=== PATIENT | female | born 1990 | race Two or more races ===

== ENCOUNTER 2023-12-18 12:25 | Emergency (ER) | payer MEDICAID, OTHER ==
[~2023-12-18] VITALS: Ht 165.1 cm; Wt 81.6 kg
[2023-12-18 13:33] VITALS: BP 155/98; PULSE 75; RESP 18; TEMP 97.7; O2SAT 97
[2023-12-18] MEDS ORDERED: BENZ200C64 PO (14:01)
[2023-12-18] MEDS ORDERED: AZIT500T66 PO (14:01)
== END 2023-12-18 14:11 | disposition home or self-care (01) ==
LOC: ER 12:25
DX: J20.9 Acute bronchitis, unspecified (principal)
CPT/HCPCS: 71045